=== PATIENT | male | born 1950 | race Caucasian/White ===

== ENCOUNTER → 2018-03-24 | Outpatient (CLI) | payer MEDICARE ==
--- NOTE | 2018-03-24 23:29 | MR ---
EXAMINATION TYPE: MR shoulder RT wo con DATE OF EXAM: 03/24/2018 COMPARISON: NONE HISTORY: Rt shoulder pain after heavy lifting TECHNIQUE: Multiplanar, multisequence imaging of the right shoulder is performed without contrast. FINDINGS: There is retraction of the supraspinatus tendon. There is shoulder joint effusion. There is narrowing of the glenohumeral joint space. The glenoid fermin appear intact. Subscapularis tendon is intact. Bi ceps tendon is intact. There is mild narrowing of the subacromial joint space. IMPRESSION: Large rotator cuff tear with retraction of the supraspinatus tendon. Shoulder joint effusion. Osteoar thritic joint space narrowing.
== END | disposition home or self-care (01) ==
LOC: RADMRIMAIN 21:34
PROVIDERS: ATTEND Orthopaedic Surgery Sports Medicine
DX: M75.101 Unspecified rotator cuff tear or rupture of right shoulder, not specified as traumatic (principal); M19.011 Primary osteoarthritis, right shoulder

== ENCOUNTER 2018-04-26 11:29 | Emergency (ER) | payer MEDICARE ==
--- NOTE | 2018-04-26 11:48 | ED ---
Chest Pain HPI - General Chief Complaint: Chest Pain Stated Complaint: poss rib fx Time Seen by Provider: 04/26/18 11:48 Source: patient Mode of arrival: ambulatory Limitations: no limitations - History of Present Illness Initial Comments: Patient presents with left anterior chest wall pain that started after he fell 5 days ago. Patient states she is clean-catch with his grandson, tripped over his own feet, falling to the ground, states he tried to fall on his left side because he recently had right shoulder surgery, states his left arm felt right under him between the ground and his left anterior chest wall. Patient states pain resolves with rest. However has significant pain when coughing. Patient denies head trauma or loss of consciousness from the fall. Patient denies pain or injury to any other area of the body. Patient denies any pain or problems with right arm or right shoulder since the fall. Patient states he has [place] from his recent shoulder surgery, took those which relieved his chest wall pain. - Related Data Home Medications Medication Instructions Recorded Confirmed Atorvastatin Calcium [Lipitor] 20 mg PO HS 03/20/16 04/26/18 Timolol 0.5% Ophth Soln [Timoptic 1 drop LEFT EYE BID 03/20/16 04/26/18 0.5% Ophth Soln] PARoxetine [Paxil] 20 mg PO DAILY 04/26/18 04/26/18 Previous Rx's Medication Instructions Recorded HYDROcodone/APAP 7.5-325MG [[place] 1 tab PO Q4H PRN 2 Days #8 tab 04/26/18 7.5-325] Allergies Allergy/AdvReac Type Severity Reaction Status Date / Time No Known Allergies Allergy Verified 03/20/16 07:56 Review of Systems ROS Statement: Those systems with pertinent positive or pertinent negative responses have been documented in the HPI. ROS Other: All systems not noted in ROS Statement are negative. Constitutional: Denies: fever, chills Eyes: Denies: eye pain, vision change ENT: Denies: epistaxis Respiratory: Denies: cough, dyspnea Cardiovascular: Reports: chest pain. Denies: palpitations, dyspnea on exertion , orthopnea, edema, syncope Endocrine: Denies: fatigue Gastrointestinal: Denies: abdominal pain, nausea, vomiting Musculoskeletal: Reports: other (chest wall pain). Denies: back pain, joint swelling, arthralgia, myalgia Skin: Denies: change in color Neurological: Denies: weakness, numbness, abnormal gait Hematological/Lymphatic: Denies: easy bleeding Past Medical History Past Medical History: Hyperlipidemia Additional Past Medical History / Comment(s): glaucoma History of Any Multi-Drug Resistant Organisms: None Reported Past Surgical History: Orthopedic Surgery Additional Past Surgical History / Comment(s): r shoulder Past Psychological History: Anxiety, PTSD Smoking Status: Never smoker Past Alcohol Use History: None Reported Past Drug Use History: None Reported General Exam - General Exam Comments Initial Comments: Sitting up in chair drinking coffee. No acute distress. Conversing normally. Calm, pleasant, smiling. Limitations: no limitations General appearance: alert, in no apparent distress Head exam: Present: atraumatic, normocephalic Eye exam: Present: normal appearance, PERRL, EOMI ENT exam: Present: normal exam, normal oropharynx, mucous membranes moist, normal external ear exam Neck exam: Present: normal inspection, full ROM. Absent: tenderness, meningismus Respiratory exam: Present: normal lung sounds bilaterally, chest wall tenderness , other (Point tenderness over anterior left ribs 7 and 8). Absent: respiratory distress, wheezes, rales Cardiovascular Exam: Present: regular rate, normal rhythm GI/Abdominal exam: Present: soft. Absent: distended, tenderness, guarding Extremities exam: Present: other (Right arm in shoulder immobilizer. Full range of motion all other extremities. No deformities, edema, bony tenderness of the extremities appreciated) Back exam: Present: normal inspection, full ROM. Absent: tenderness, paraspinal tenderness, vertebral tenderness Neurological exam: Present: alert, oriented X3 Psychiatric exam: Present: normal affect, normal mood Skin exam: Present: warm, dry, intact, normal color Course Vital Signs 04/26/18 11:39 Temperature 98.3 F Pulse Rate 61 Respiratory 18 Rate Blood Pressure 125/75 O2 Sat by Pulse 98 Oximetry Chest Pain MDM - MDM Patient denies need for pain medications at time of initial evaluation. X-rays of ribs and chest ordered. No gross obvious displaced rib fractures on x-ray. Radiologist read not crossing over in computer. Patient updated with results. Patient feels comfortable being discharged home. We'll give prescription short course of [place]. Patient to take Motrin as needed. Return to ER for new or worsening symptoms. Incentive spirometry instructions given. Patient to follow up with primary care physician. Patient and are happy with plan of care. Disposition Clinical Impression: Rib pain on left side Disposition: HOME SELF-CARE Condition: Good Instructions: Costochondritis (ED) Additional Instructions: Follow-up with your primary care physician for repeat evaluation. Return to ER for new or worsening symptoms. Prescriptions: HYDROcodone/APAP 7.5-325MG [[place] 7.5-325] 1 tab PO Q4H PRN 2 Days #8 tab PRN Reason: Severe Pain Is patient prescribed a controlled substance at d/c from ED?: Yes When asked, does pt state using other controlled substances?: No If prescribed controlled substance>3 days was MAPS reviewed?: Prescribed <3 Days If opioid is for acute pain is fill amount 7 days or less?: Yes Referrals: Emerita Kelly DO [Primary Care Provider] - 1-2 days
--- NOTE | 2018-04-26 14:41 | XR ---
EXAMINATION TYPE: XR ribs LT w pa chest xray DATE OF EXAM: 04/26/2018 COMPARISON: NONE HISTORY: Pain TECHNIQUE: 2 views left RIBS supplemented with a frontal chest FINDINGS: No pneumothorax is evident. Heart size is normal. Pulmonary vasculature is normal. The lung s are clear. Left ribs appear intact and no displaced rib fractures are identified. Follow-up study can be perform ed 7-10 days from acute trauma for continued pain. IMPRESSION: 1. Normal left ribs
[2018-04-26 14:52] VITALS: BP 120/72; PULSE 69; RESP 16; TEMP 97.6
== END 2018-04-26 14:52 | disposition home or self-care (01) ==
LOC: EC 11:29
DX: R07.81 Pleurodynia (principal); E78.5 Hyperlipidemia, unspecified; H40.9 Unspecified glaucoma; F41.9 Anxiety disorder, unspecified; F43.10 Post-traumatic stress disorder, unspecified; Z79.899 Other long term (current) drug therapy; W01.10XA Fall on same level from slipping, tripping and stumbling with subsequent striking against unspecified object, initial encounter
CPT/HCPCS: 99283

== ENCOUNTER 2018-10-22 08:42 | Day surgery (SDC) | payer MEDICARE, OTHER ==
[2018-10-21 11:49] VITALS: BMI 35.9
[~2018-10-22 08:42] MED LIST: LACTATED RINGERS 1,000 ML IV SCH
[2018-10-22 09:05] VITALS: TEMP 97.7
[2018-10-22] MEDS ORDERED: LIDOCAINE 1% 20 ML VIAL (10MG/ML) FOR IV START INTRADERMA ONE (09:14)
[2018-10-22] MEDS ORDERED: LIDOCAINE 1% INJ 10MG/ML (20 ML MDV) ONE (09:25)
[2018-10-22] MEDS ORDERED: PROPOFOL 10 MG/ML 20 ML VIAL IV ONE (09:25)
[2018-10-22] MEDS ORDERED: GLYCOPYRROLATE 0.2 MG/ML 2 ML VIAL ONE (09:25)
[2018-10-22 09:50] VITALS: BP 101/62; RESP 16
--- NOTE | 2018-10-22 09:50 | P.PCN ---
Date of Procedure: 10/22/18 Procedure(s) Performed: Procedure: Esophagogastroduodenoscopy and biopsy. Preoperative diagnosis: History of chronic reflux and celiac disease and recent episode of coughing up blood. Postoperative diagnosis: 1. Sliding hiatal hernia with no obvious esophagitis or complicated reflux disease. 2. Mild gastritis and duodenitis. 3. Multiple biopsies obtained from the duodenum, antrum and esophagus. Preparation and sedation: Was provided by anesthesia. Brief clinical history: The patient is a 67-year-old male who was diagnosed with celiac disease in July 2012 and has been on a gluten-free diet since that time. The patient has history of chronic reflux and takes medications for that intermittently. He had an episode of coughing up blood around 2 weeks ago. This evaluation is to assess for esophagitis, complicated reflux disease or other pathology. Procedure: With the patient on his left lateral decubitus position and after informed consent and adequate sedation, I passed the Olympus-GIF 160 video upper endoscope through the cricopharyngeus down the esophagus. GE junction was around 41 cm from the incisors and there was small sliding hiatal hernia with no definite esophagitis or any evidence of strictures or definite Tran' s esophagus. The endoscope was then passed into the stomach which was insufflated with air and inspected in detail including the retroflex view in the cardia. There was some mottling and erythema in the antrum but no ulcers or erosions. Pyloric channel did not show any ulcers. Duodenal bulb, post bulbar area and descending duodenum showed minimal erythema and friability. I obtained multiple biopsies from the duodenum in addition to biopsies from the antrum and esophagus then the endoscope was withdrawn. The patient tolerated the procedure well. Plan: The patient was reassured. Will await biopsy results. In the meantime, I suggested that he continue his antireflux diet and measures. He can continue acid suppressive therapy as needed. I will keep you updated on his progress.
[2018-10-22 10:03] VITALS: PULSE 63
== END 2018-10-22 10:19 | disposition home or self-care (01) ==
LOC: ORWHC2ENDO 08:42
DX: K29.50 Unspecified chronic gastritis without bleeding (principal); K21.9 Gastro-esophageal reflux disease without esophagitis; K29.80 Duodenitis without bleeding; K44.9 Diaphragmatic hernia without obstruction or gangrene; E66.9 Obesity, unspecified; K90.0 Celiac disease; F32.9 Major depressive disorder, single episode, unspecified; E78.5 Hyperlipidemia, unspecified; Z79.899 Other long term (current) drug therapy
CPT/HCPCS: 88305; 43239; J2001; J2704

== ENCOUNTER → 2019-10-21 | Outpatient (CLI) | payer MEDICARE ==
[2019-10-21 12:57] LABS: Basophils % (A) 1 %; Eosinophils # (A) 0.3 k/uL (0-0.7); Eosinophils % (A) 4 %; HCT 45.1 % (39.0-53.0); HGB 14.3 gm/dL (13.0-17.5); Lymphocytes # (A) 1.5 k/uL (1.0-4.8); Lymphocytes % (A) 23 %; MCH 29.3 pg (25.0-35.0); MCHC 31.8 g/dL (31.0-37.0); MCV 92.2 fL (80.0-100.0); Mean Platelet Volume 7.9; Monocytes # (A) 0.5 k/uL (0-1.0); Monocytes % (A) 7 %; Neutrophils % (A) 62 %; Platelet Count 229 k/uL (150-450); RBC 4.89 m/uL (4.30-5.90); RDW 12.5 % (11.5-15.5); WBC 6.4 k/uL (3.8-10.6)
== END | disposition home or self-care (01) ==
LOC: LABWHC1 11:44
PROVIDERS: ATTEND Nurse Practitioner
DX: K62.5 Hemorrhage of anus and rectum (principal)
CPT/HCPCS: 36415; 85025

== ENCOUNTER → 2021-02-12 | Outpatient (CLI) | payer MEDICARE ==
[2021-02-12 12:38] LABS: Appearance,Urine Clear (Clear); Bilirubin,Urine Negative (Negative); Blood,Urine Negative (Negative); Color,Urine Yellow; Glucose,Urine (UA) Negative (Negative); Ketones,Urine Negative (Negative); Leukocyte Esterase,Urine Negative (Negative); Nitrite,Urine Negative (Negative); Protein,Urine Negative (Negative); Specific Gravity,Urine 1.007 (1.001-1.035); Urobilinogen,Urine <2.0 mg/dL (<2.0)
[2021-02-12 19:17] LABS: Basophils # (A) 0.02 X 10*3/uL (0.00-0.10); Basophils % (A) 0.3 %; Eosinophils # (A) 0.21 X 10*3/uL (0.04-0.35); Eosinophils % (A) 2.7 %; HCT 41.4 % (39.6-50.0); HGB 13.2 g/dL (13.0-17.0); Lymphocytes # (A) 1.43 X 10*3/uL (0.90-5.00); Lymphocytes % (A) 18.5 %; MCH 29.6 pg (27.0-32.0); MCHC 31.9 g/dL (32.0-37.0); MCV 92.8 fL (80.0-97.0); Mean Platelet Volume 10.7 fL (9.5-12.2); Monocytes # (A) 0.59 X 10*3/uL (0.20-1.00); Monocytes % (A) 7.6 %; Neutrophils # (A) 5.47 X 10*3/uL (1.80-7.70); Neutrophils % (A) 70.6 %; Platelet Count 249 X 10*3/uL (140-440); RBC 4.46 X 10*6/uL (4.40-5.60); RDW 12.4 % (11.5-14.5); WBC 7.74 X 10*3/uL (4.50-10.00)
[2021-02-12 19:25] LABS: Protein, Total 6.3 g/dL (6.2-8.2)
[2021-02-12 19:45] LABS: Hepatitis B Surface Antigen Non-Reactive (Non-Reactive); Hepatitis C IgG Antibody Non-Reactive (Non-Reactive)
[2021-02-12 19:52] LABS: Creatine Kinase 116 U/L (35-257); Uric Acid 5.5 mg/dL (3.7-8.7)
[2021-02-12 19:53] LABS: ALT 32 U/L (10-49); AST 27 U/L (14-35); African American GFR (CKD) 99.2 (60.0-200.0); Albumin/Globulin Ratio 2.15 (1.60-3.17); Alkaline Phosphatase 83 U/L (41-126); BUN/Creat Ratio 17.78 Ratio (12.00-20.00); C Reactive Protein <0.4 mg/dL (0.0-0.8); Calcium 9.4 mg/dL (8.7-10.3); Carbon Dioxide 28.6 mmol/L (21.6-31.8); Chloride 107 mmol/L (96-109); Glucose 151 mg/dL (70-110); Non-African American GFR(CKD) 85.6 (60.0-200.0); Potassium 4.6 mmol/L (3.5-5.5); Rheumatoid Factor, Qnt <4 IU/mL (0-15); Sodium 142 mmol/L (135-145); Total Bilirubin 0.4 mg/dL (0.3-1.2); Total Protein 6.3 g/dL (6.2-8.2)
[2021-02-12 21:16] LABS: Erythrocyte Sedimentation Rate 11 mm/Hr (0-20)
[2021-02-12 21:31] LABS: Anti-DNA, DS unit <1.0 IU/mL; Anti-Smith Ab Interp NEGATIVE (NEGATIVE); Cardiolipin Ab IgG Interp NEGATIVE (NEGATIVE); Cardiolipin Ab IgM Interp NEGATIVE (NEGATIVE); Cardiolipin IgM Antibody 10.7 U/mL; Centromere Antibody <0.2 AI; Centromere Antibody Interp NEGATIVE (NEGATIVE); Cyclic Citrull Pep IgG Unit <0.5 U/mL; Cyclic Citrullinated Pep IgG NEGATIVE (NEGATIVE); DNA Double-Stranded NEGATIVE (NEGATIVE); Scleroderma SC-70 Ab <0.2 AI
[2021-02-13 13:33] LABS: HLA B27 POSITIVE
[2021-02-13 14:27] LABS: Angiotensin-1 Converting Enz. 49 U/L (8-52)
[2021-02-13 14:50] LABS: C-ANCA <1:20 Titer (<1:20)
[2021-02-13 15:15] LABS: APTT 41 Sec(s) (<43); DRVVT 1:1 Mix 41 Sec(s) (<44); Dilute Russell Viper Venom 56 Sec(s) (<44)
[2021-02-14 14:22] LABS: Albumin 3.53 g/dL (3.80-4.90); Gamma Globulin 0.89 g/dL (0.70-1.50)
[2021-02-17 00:27] LABS: Histoplasma Abs by ID None Detected (None Detected); Histoplasma Abs by Mycelia, CF <1:8 (<1:8)
[2021-02-25 13:36] LABS: ANA Pattern Speckled
== END | disposition home or self-care (01) ==
LOC: LABWHC1 11:13
PROVIDERS: ATTEND Internal Medicine Rheumatology
DX: R76.8 Other specified abnormal immunological findings in serum (principal)
CPT/HCPCS: 36415; 80053; 81003; 82085; 82164; 82306; 82550; 83520; 84165; 84439; 84443; 84550; 85025; 85613; 85652; 85730; 86038; 86039; 86140; 86147; 86160; 86162; 86200; 86225; 86235; 86255; 86334; 86431; 86698; 86803; 86812; 87340

== ENCOUNTER 2023-06-03 07:25 | Day surgery (SDC) | payer MEDICARE ==
[2023-05-26 16:12] VITALS: BMI 31.5
--- NOTE | 2023-06-03 07:59 | P.GSHP ---
History of Present Illness H&P Date: 06/03/23 Chief Complaint: Anemia, screening 72-year-old male sent for upper and lower endoscopy by hematology. Patient with iron deficiency anemia. History of celiac disease. Last upper and lower endoscopy 2015. Denies rectal bleeding. Past Medical History Past Medical History: Eye Disorder, GERD/Reflux, Hyperlipidemia, Sleep Apnea/CPAP/BIPAP Additional Past Medical History / Comment(s): LT glaucoma ,arthritis left eye History of Any Multi-Drug Resistant Organisms: None Reported Past Surgical History: Orthopedic Surgery Additional Past Surgical History / Comment(s): both shoulder SX. COLONOSCOPY. EGD Past Anesthesia/Blood Transfusion Reactions: No Reported Reaction Additional Past Anesthesia/Blood Transfusion Reaction / Comment(s): No blood transfusion Smoking Status: Former smoker - Past Family History Mother Family Medical History: No Reported History Medications and Allergies Home Medications Medication Instructions Recorded Confirmed Type Atorvastatin Calcium [Lipitor] 20 mg PO HS 03/20/16 06/03/23 History Timolol 0.5% Ophth Soln [Timoptic 1 drop LEFT EYE BID 03/20/16 06/03/23 History 0.5% Ophth Soln] PARoxetine [Paxil] 20 mg PO DAILY 04/26/18 06/03/23 History prednisoLONE ACETATE 1% OPHTH 1 drops LEFT EYE DAILY 05/26/23 06/03/23 History [Pred Forte 1%] Allergies Allergy/AdvReac Type Severity Reaction Status Date / Time No Known Allergies Allergy Verified 06/03/23 07:51 Surgical - Exam Physical exam: General: Well-developed, well-nourished HEENT: Normocephalic, sclerae nonicteric Abdomen: Nontender, nondistended Extremities: No edema Neuro: Alert and oriented Assessment and Plan (1) Anemia Narrative/Plan: Will proceed with upper and lower endoscopy Current Visit: Yes Status: Acute Code(s): D64.9 - ANEMIA, UNSPECIFIED SNOMED Code(s): 734583794
[2023-06-03] MEDS ORDERED: PROPOFOL 10 MG/ML 20 ML VIAL IV ONE (08:01)
[2023-06-03] MEDS ORDERED: LIDOCAINE 1% (10MG/ML) FOR IV START INTRADERMA ONE (08:02)
[2023-06-03 08:03] VITALS: TEMP 98.1
--- NOTE | 2023-06-03 08:22 | P.PCN ---
Date of Procedure: 06/03/23 Procedure(s) Performed: PREOPERATIVE DIAGNOSIS: Anemia, screening POSTOPERATIVE DIAGNOSIS: Mild gastritis, small gastric polyp, small hiatal hernia, short segment Tran's esophagus, diverticulosis PROCEDURE: 1. EGD with biopsy 2. Colonoscopy ANESTHESIA: MAC SURGEON: Chun Branch M.D. SPECIMENS: Antrum, gastric polyp, Tran's esophagus ENDOSCOPIC PROCEDURE: The patient was on the endoscopy table in the left decubitus position. The Olympus gastroscope was inserted into the oropharynx and passed under direct visualization to the region of the third portion of the duodenum. From that point the scope was slowly withdrawn inspecting all surfaces carefully. There were no neoplastic inflammatory or polypoid lesions throughout the duodenum. The pylorus was widely patent. The stomach was carefully inspected. There was gastritis present. A few small polyps are seen in the stomach. The largest polyp was about 7 mm and biopsied. Pressure flexure revealed a small hiatal hernia. The GE junction was present 2 cm above the diaphragmatic hiatus. Distal esophagus revealed Tran's changes with a length of approximately 2-3 cm. The remainder the esophagus appear normal. The patient was kept on the endoscopy table in the left decubitus position. The Olympus colonoscope was inserted into the anus and passed under direct visualization to the base of the cecum. The appendiceal orifice was visualized. From that point the scope was slowly withdrawn inspecting all surfaces caref ully. There were no neoplastic inflammatory or polypoid lesions throughout the cecum, ascending, transverse, descending, sigmoid and rectum. There was scattered left-sided diverticulosis noted. Digital rectal examination was normal. The patient was taken to the recovery room in stable condition per anesthesia guidelines. RECOMMENDATIONS: Await biopsy results. No findings to explain patient's anemia at this time. Recommend repeat EGD 3-5 years.
[2023-06-03 08:28] VITALS: RESP 16
[2023-06-03 08:53] VITALS: BP 110/67; PULSE 52
== END 2023-06-03 08:58 | disposition home or self-care (01) ==
LOC: ORWHC2ENDO 07:25
PROVIDERS: ATTEND Surgery
DX: K22.70 Barrett's esophagus without dysplasia (principal); D50.9 Iron deficiency anemia, unspecified; K57.10 Diverticulosis of small intestine without perforation or abscess without bleeding; K29.50 Unspecified chronic gastritis without bleeding; K31.7 Polyp of stomach and duodenum; K21.00 Gastro-esophageal reflux disease with esophagitis, without bleeding; E78.5 Hyperlipidemia, unspecified; G47.33 Obstructive sleep apnea (adult) (pediatric); Z79.899 Other long term (current) drug therapy
CPT/HCPCS: 45378; 88305; 88342; 43239; J2704